=== PATIENT | male | born 1950 | race Caucasian/White ===

== ENCOUNTER 2020-05-24 12:16 | Inpatient (IN) | payer MEDICARE, OTHER ==
[2020-05-24] VITALS (10 sets, daily range): BP systolic 100–150; BP diastolic 55–97
[~2020-05-24] VITALS: Ht 182.9 cm; Wt 91.6 kg
--- NOTE | 2020-05-24 12:17 | NUR ---
[id number], unresponsive on bipap waiter/waitress captain. narcan 4mg and 0.5 epi given waiter/waitress captain. DR. THAKKAR FOR EVAL & RESP THERAPIST @ BS FOR INTUBATION.
[2020-05-24] MEDS ORDERED: PROPOFOL 100 ML IV ONE (12:25)
[2020-05-24] MEDS ORDERED: DEXAMETHASONE SOD PHOSPHATE 10 MG/ML VIAL ONE (12:30)
[2020-05-24] MEDS ORDERED: PROPOFOL 200 MG/20 ML VIAL IV ONE ×2 (12:30→13:30)
[2020-05-24] MEDS ORDERED: DEXAMETHASONE SOD PHOSPHATE 10 MG/ML VIAL IV ONE (12:30)
--- NOTE | 2020-05-24 12:36 | NUR ---
MOVE SHEET SUBMITTED
[2020-05-24 12:50] LABS: BASOPHILS # (AUTO) 0.1 /CMM (0.0-0.2); BASOPHILS % (AUTO) 0.5 % (0.0-2.0); EOSINOPHILS % (AUTO) 3.5 % (0.0-6.0); HEMATOCRIT 51 % (39-51); HEMOGLOBIN 16.6 g/dL (13.5-17.5); LYMPHOCYTES # (AUTO) 3.9 /CMM (0.8-4.8); LYMPHOCYTES % (AUTO) 35.7 % (20.0-44.0); MEAN CORPUSCULAR HGB CONC 33 g/dl (31.0-36.0); MEAN CORPUSCULAR VOLUME 97 fL (80-96); MONOCYTES # (AUTO) 1.3 /CMM (0.1-1.30); MONOCYTES % (AUTO) 12.3 % (2.0-12.0); NEUTROPHILS # (AUTO) 5.2 /CMM (1.8-8.9); PLATELET COUNT (AUTO) 285 /CMM (150-450); RED BLOOD CELL COUNT(AUTO) 5.22 MIL/uL (4.5-6.0); WHITE BLOOD COUNT (AUTO) 10.8 K/uL (4.3-11.0)
[2020-05-24 13:05] LABS: CALCIUM, SERUM 7.8 mg/dL (8.5-10.1); CARBON DIOXIDE 21 mmol/L (21-32); CHLORIDE 101 mmol/L (98-107); CREATININE 1.8 mg/dL (0.6-1.3); GLUCOSE 205 mg/dL (74-106); POTASSIUM 4.4 mmol/L (3.5-5.1); SODIUM SERUM 138 mmol/L (136-145); UREA NITROGEN, BLOOD 22 mg/dL (7-18)
[2020-05-24 13:10] LABS: ALANINE AMINOTRANSFERASE 82 U/L (12-78); ALBUMIN 3.4 g/dL (3.4-5.0); ALCOHOL, BLOOD < 3 mg/dL (0-0); ALKALINE PHOSPHATASE 84 U/L (46-116); ASPARTATE AMINOTRANSFERASE 81 U/L (15-37); BILIRUBIN,DIRECT 0.1 mg/dL (0.0-0.2); BILIRUBIN,TOTAL 0.5 mg/dL (0.2-1.0); TOTAL PROTEIN, SERUM 6.3 g/dL (6.4-8.2)
[2020-05-24 13:11] LABS: ACETAMINOPHEN 0 ug/ml (10-30); SALICYLATE 1.4 mg/dL (2.8-20.0)
--- NOTE | 2020-05-24 13:14 | NUR ---
PT BACK FROM CT. PT STABLE, NAD NOTED AT THIS TIME. IV PROPOFOL INFUSING WELL PER PROTOCOL. ON TELE, ST. WILL CONT TO MONITOR.
[2020-05-24 13:17] LABS: SERUM AMMONIA 81 umol/L (11-32)
[2020-05-24 13:30] LABS: THYROID STIMULATING HORMONE 4.326 uIU/mL (0.358-3.74)
[2020-05-24] MEDS ORDERED: PIPERACILLIN /TAZOBACTAM 3.375 G in IV D5W 50 ML IV ONE (13:30)
--- NOTE | 2020-05-24 13:50 | NUR ---
BED [id number]
[2020-05-24] MEDS ORDERED: ALBU18HF2 IH (13:51)
[2020-05-24] MEDS ORDERED: LEVO150T8 PO (13:51)
[2020-05-24] MEDS ORDERED: ALPR1TAB7 PO (13:51)
[2020-05-24] MEDS ORDERED: FLUT1BLS15 INH (13:51)
[2020-05-24] MEDS ORDERED: FLUT1DIS3 IH (13:52)
--- NOTE | 2020-05-24 13:52 | NUR ---
PANEL ON-CALL PAGED
[2020-05-24] MEDS ORDERED: CHOL100040 PO (13:53)
[2020-05-24 14:00] LABS: APPEARANCE,URINE Clear (CLEAR); BILIRUBIN,URINE Negative (NEGATIVE); BLOOD, URINE Large Ery/uL (NEGATIVE); COLOR,URINE Yellow (YELLOW); KETONES,URINE Negative (NEGATIVE); LEUKOCYTE ESTERASE ,URINE Negative (NEGATIVE); NITRITE, URINE Negative (NEGATIVE); PROTEIN,URINE >=300 mg/dl (NEGATIVE); UGLUCOSE Negative (NEGATIVE); UROBILINOGEN,URINE 0.2 EU/dL (0.2)
[2020-05-24] MEDS ORDERED: IV NS 0.9% 1,000 ML BAG IV ONE (14:00)
[2020-05-24 14:01] LABS: ABG BASE EXCESS -4.3 mmol/L; ABG OXYGEN SATURATION 99.3 % (92.0-98.5); ABG PCO2 46.4 mmHg (35.0-45.0); AaDO2 193.6 mmHg; COHb 0.3 % (0.5-1.5); MetHb 0.6 % (0.0-1.5); O2Hb 98.4 % (94.0-97.0); SITE, ABG Right Radial; VENT MODE, BG AC 20 550 +5 100%
[2020-05-24 14:02] LABS: BACTERIA,URINE Few /HPF (None Seen); RBC,URINE 21-50 /HPF (0-2); SQUAMOUS EPITHELIAL CELL,UR Rare /HPF (None Seen)
[2020-05-24] MEDS ORDERED: PIPERACILLIN /TAZOBACTAM 3.375 G VIAL IV ONE (14:08)
--- NOTE | 2020-05-24 14:21 | NUR ---
REPORT GIVEN TO KATHIA SILVA FOR JAY.
[2020-05-24] MEDS ORDERED: PROPOFOL 100 ML ONE (14:38)
[2020-05-24] MEDS ORDERED: PROPOFOL 100 ML IV PRN (15:00)
[2020-05-24] MEDS ORDERED: Z GUARD REMEDY 2 OZ OINT TP PRN (15:00)
[2020-05-24] MEDS ORDERED: ONDANSETRON HCL/PF 4 MG/2 ML VIAL IVP PRN (15:00)
[2020-05-24] MEDS ORDERED: ACETAMINOPHEN 650 MG/SUPP.RECT RC PRN (15:00)
[2020-05-24] MEDS ORDERED: ALBUTEROL FS 2.5 MG/3 ML VIAL.NEB NEB SCH (15:30)
--- NOTE | 2020-05-24 15:52 | NUR ---
PATIENT SELF-EXTUBATED HIMSELF. NC 6L/MIN SATING AT 98%. WILL CONTINUE TO MONITOR PATIENT.
[2020-05-24] MEDS ORDERED: IPRATROPIUM NEB FS 0.5 MG/2.5 ML AMPUL.NEB ONE (16:17)
[2020-05-24] MEDS ORDERED: ALBUTEROL HALF STRENGTH 1.25 MG/3 ML VIAL.NEB ONE (16:17)
[2020-05-24] MEDS: ALBUTEROL HALF STRENGTH 1.25 MG/3 ML VIAL.NEB NEB SCH ×3 (16:22→23:03)
[2020-05-24] MEDS: IPRATROPIUM NEB FS 0.5 MG/2.5 ML AMPUL.NEB NEB SCH ×3 (16:22→23:03)
[2020-05-24] MEDS ORDERED: ALBUTEROL HALF STRENGTH 1.25 MG/3 ML VIAL.NEB NEB PRN (16:30)
[2020-05-24] MEDS ORDERED: methylPREDNISolone SOD SUCC 125 MG/2ML VIAL IV ONE (16:30)
[2020-05-24 16:35] LABS: CREATININE, URINE 120.2 MG/DL (30.0-125.0); URINE TOTAL PROTEIN 400.9 mg/dL (0-11.9)
[2020-05-24] MEDS: CHOLECALCIFEROL 1,000 UNIT TABLET (VIT D3) PO SCH (16:49)
[2020-05-24 17:19] LABS: ABG BASE EXCESS -2.1 mmol/L; ABG OXYGEN SATURATION 97.8 % (92.0-98.5); ABG PCO2 49.2 mmHg (35.0-45.0); ABG PH 7.319 (7.350-7.450); ABG PO2 102.5 mmHg (75.0-100.0); AaDO2 155.1 mmHg; COHb 0.6 % (0.5-1.5); MetHb 0.5 % (0.0-1.5); O2Hb 96.7 % (94.0-97.0); SITE, ABG Right Radial; VENT MODE, BG N/C 6LPM
[2020-05-24] MEDS ORDERED: FEE PK DOSING 1 MIN EA MC ONE (18:43)
--- NOTE | 2020-05-24 18:54 | NUR ---
RN OPENING NOTE: RECEIVED PATIENT FROM ER TODAY AT 14:55. AT THAT TIME, PATIENT WAS INTUBATED BUT ALERT AND ATTEMPTING TO REMOVE TUBING. PATIENT WAS PLACED IN BED AND RESTRAINED TO PREVENT EXTUBATION. PATIENT CAME IN WITH #18 RAC/ LWRIST, C/D/I, FLUSHING WELL, NO SIGNS OF COMPLICATIONS NOTED. DIPRIVAN WAS RUNNING AT 50MCG/KG/MIN, HAD CONTACTED DR CRISTOBAL TO INCREASE DIPRIVAN. PATIENT HAD A BLOOD THAT WAS LATER REMOVED, URINATING IN URINAL. NOW, THE PATIENT IS AAOX3, RESPONDS APPROPRIATELY. SR IN THE 90S ON THE MONITOR. L BUTTOCK REDNESS, PHOTO TAKEN AND PLACED IN CHART. PATIENT IS COVID NEGATIVE. AROUND 14:45, PATIENT HAD EXTUBATED HIMSELF, DIPRIVAN TITRATED DOWN, NO DISTRESS WAS NOTED POST EXTUBATION. AT THIS TIME, PATIENT IS IN BED, ON NC 2L/MIN, SATING WELL, NO SIGNS OF ACUTE DISTRESS NOTED. MD PLACED ADMITTING ORDERS, FLUIDS STARTED, DIET PLACED, PATIENT FC, NKA. SAFETY MEASURES IMPLEMENTED, BED IN LOWEST POSITION, LOCKED, SIDE RAILS UP, CALL LIGHT WITHIN REACH. WILL ENDORSE TO KATHIA NAVA FOR CONTINUITY OF CARE. Addendum: 05/24/20 at 1911 by NELLIE CAT RN CORRECTION: PATIENT EXTUBATED HIMSELF AT 15:45
[2020-05-24] MEDS: IV D5/0.45 NACL 1,000 ML IV PRN (19:00)
--- NOTE | 2020-05-24 20:45 | NUR ---
ICU/DIRECTOR OF SPECIAL SERVICES PT REQUESTED SOMETHING TO SLEEP, LIKE LUNESTA. ALSO SAID HE WANTED A RESCUE INHALER TO HAVE AT BEDSIDE. IT WAS EXPLAINED THAT PT IS GETTING BREATHING TREATMENT Q 4 HOURS. HOWEVER PT IS REQUESTING TO HAVE SOMETHING AT BEDSIDE FOR HIM TO ADMINISTER HIMSELF. WATER VALVE REPAIRER WAS CALLED FOR PT'S REQUEST.
[2020-05-24] MEDS: VANCOMYCIN 1 GM in IV D5W 250 ML IV SCH (20:49)
[2020-05-24] MEDS: methylPREDNISolone SOD SUCC 125 MG/2ML VIAL IV SCH (20:50)
[2020-05-24] MEDS: HEPARIN SODIUM, PORCINE 5000 UNITS/1 ML VIAL SQ SCH (20:50)
--- NOTE | 2020-05-24 21:10 | NUR ---
ICU/CHIEF CONTROLLER TOWER HAND [employer] FOOD MAKER EMILY CALLED BACK SAID NO TO THE LUNESTA, BUT OK TO GIVE ATIVAN 1MG PO Q6HRS PRN FOR AGITATION AND SLEEP. THESE ORDERS WERE NOTED AND TAKEN OFF.
[2020-05-24] MEDS: PIPERACILLIN /TAZOBACTAM 3.375 G in IV D5W 100 ML IV SCH (21:37)
--- NOTE | 2020-05-24 23:30 | NUR ---
ICU/CASINO CAGE SUPERVISOR PT REQUESTED THE ATIVAN 1MG FOR SLEEP. THIS WAS GIVEN TO PT PER REQUEST. CALL LIGHT WITHIN REACH.
[2020-05-24] MEDS: LORAZEPAM 1 MG TABLET PO PRN (23:45)
[2020-05-25] VITALS (18 sets, daily range): BP systolic 99–159; BP diastolic 58–94
--- NOTE | 2020-05-25 00:10 | NUR ---
ICU/ROUTE DELIVERER PT REQUESTED TO HAVE ROOM, WARMER DESPITE THAT PT HAD EARLIER WANTED COLDER THEN 2 HOURS MADE WARMER. PT WAS GIVEN WARM BLANKETS THEN CALLED ENGINEERING TO INCREASE ROOM TEMPERATURE.
--- NOTE | 2020-05-25 00:45 | NUR ---
ICU/INVENTORY MANAGEMENT SPECIALIST ENGINEERING WAS CALLED TO INCREASE ROOM TEMPERATURE, HOWEVER DIDN'T CALL BACK. PT WAS VERY UPSET, SAID THAT HE WAS LEAVE AMA. PT'S ROOM WAS CHANGED FROM 254 TO 251.
[2020-05-25] MEDS: IPRATROPIUM NEB FS 0.5 MG/2.5 ML AMPUL.NEB NEB SCH ×6 (01:30→20:01)
[2020-05-25] MEDS: ALBUTEROL HALF STRENGTH 1.25 MG/3 ML VIAL.NEB NEB SCH ×6 (01:30→20:00)
--- NOTE | 2020-05-25 02:30 | NUR ---
ICU/CONTENT ENGINEER PT APPEARS TO BE HAPPY WITH THE ROOM CHANGE. PT'S NOT LEAVING AMA.
[2020-05-25] MEDS: PIPERACILLIN /TAZOBACTAM 3.375 G in IV D5W 100 ML IV SCH ×3 (04:52→20:24)
[2020-05-25] MEDS: methylPREDNISolone SOD SUCC 125 MG/2ML VIAL IV SCH ×3 (04:52→20:35)
[2020-05-25] MEDS: LORAZEPAM 1 MG TABLET PO PRN (05:33)
[2020-05-25 05:47] LABS: BASOPHILS % (AUTO) 0.1 % (0.0-2.0); HEMATOCRIT 50 % (39-51); HEMOGLOBIN 16.3 g/dL (13.5-17.5); LYMPHOCYTES # (AUTO) 0.9 /CMM (0.8-4.8); LYMPHOCYTES % (AUTO) 6.6 % (20.0-44.0); MEAN CORPUSCULAR HGB CONC 33 g/dl (31.0-36.0); MEAN CORPUSCULAR VOLUME 95 fL (80-96); MONOCYTES # (AUTO) 0.2 /CMM (0.1-1.30); MONOCYTES % (AUTO) 1.7 % (2.0-12.0); NEUTROPHILS % (AUTO) 91.6 % (43.0-81.0); PLATELET COUNT (AUTO) 248 /CMM (150-450); RED BLOOD CELL COUNT(AUTO) 5.27 MIL/uL (4.5-6.0); WHITE BLOOD COUNT (AUTO) 14.2 K/uL (4.3-11.0)
--- NOTE | 2020-05-25 06:00 | NUR ---
ICU/MICROFILM PROCESSOR PT HAS BEEN REQUESTING ATIVAN 1MG, FOR THE PAST FEW HOURS. PT REQUIRED TO BE REMINDED THAT IT'S EVERY 6 HOURS. 0600-ATIVAN WAS GIVEN AT THIS TIME.
[2020-05-25 06:11] LABS: ALBUMIN 3.3 g/dL (3.4-5.0); BILIRUBIN,TOTAL 0.5 mg/dL (0.2-1.0); CALCIUM, SERUM 8.1 mg/dL (8.5-10.1); CREATININE 1.5 mg/dL (0.6-1.3); MAGNESIUM 2.3 mg/dL (1.8-2.4); POTASSIUM 5.4 mmol/L (3.5-5.1); TOTAL PROTEIN, SERUM 6.6 g/dL (6.4-8.2)
--- NOTE | 2020-05-25 06:50 | NUR ---
ICU/PETROLEUM REFINING FIRER LACTIC ACID WAS 3.5 NOTIFIED THE STAMPING MILL TENDER MD, HOWEVER HE SAID TO PASS IT ALONG TO THE PRIMARY CARE PROVIDER.
[2020-05-25] MEDS: LEVOTHYROXINE SODIUM 75 MCG TABLET PO SCH (07:55)
[2020-05-25] MEDS: FLUTICASONE/VILANTEROL 1 EACH BLST.W.DEV IH SCH (08:34)
[2020-05-25] MEDS: PANTOPRAZOLE 40 MG VIAL IV SCH (08:34)
[2020-05-25] MEDS: CHOLECALCIFEROL 1,000 UNIT TABLET (VIT D3) PO SCH (08:34)
[2020-05-25] MEDS: HEPARIN SODIUM, PORCINE 5000 UNITS/1 ML VIAL SQ SCH ×2 (08:35→20:27)
--- NOTE | 2020-05-25 08:45 | NUR ---
OPENING ELEPHANT TAMER NOTE RECEIVED PT SITING UPRIGHT IN BED WITH NO SIGNS OR SYMPTORMS OF RESPIRATORY DISTRESS. HE IS ON ROOM AIR WITH ON 02 SATURATION OF 93% AND STATES HE "DOES NOT NEED OXYGEN AT THIS TIME." WILL CONTINUE TO MONITOR. HE IS AWAKE, ALERT AND ORIENTED AND WALKS TO THE BATHROOM INDEPENDENTLY. HE HAS AN 18G RAC THAT IS PATENT AND FLUSHED WITH NO S/S OF INFILTRATION OR INFECTION. INSTRUCTED PT ON HOW TO USE CALL MELO AND HE COMMUNICATED PLAN OF CARE WITH PT. BED IS IN LOWEST AND LOCKED POSITION. WILL CONTINUE TO MONITOR. Addendum: 05/26/20 at 0350 by WANDA RICHARDSON RN OPENING NOTE FOR 05/25/2020 AT 1945.
[2020-05-25] MEDS ORDERED: FUROSEMIDE 20 MG/2 ML VIAL IV ONE (09:00)
[2020-05-25] MEDS ORDERED: SODIUM POLYSTYRENE SULFONATE 15 G/60 ML BOTTLE PO ONE (09:00)
--- NOTE | 2020-05-25 12:41 | NUR ---
RN NOTE 0715: Received patient awake, A/Ox4. Tolerated room air. No c.o pain. Afebrile. SR on the monitor. PIV intact, IVF infusing as ordered. 0830: Wanting to go home but told him to wait for MD's round, verbalized understanding. Abdomen distended but for patient it's not new and had BM the other day prior to admission. Given Kayexalate for K 5.4. 0910: S/E by Dr. Cerrato, with order of CXR today. 1100: S/E by Dr. Franco, informed patient still not cleared to DC home, awaiting cultures result, will continue Solumedrol and ATB. Patient verbalized understanding. 1040: No any significant changes noted at this time. Kept clean, warm and dry. Needs attended. Kept call light at reach. Able to use urinals, given Lasix 40mg IV in am.
[2020-05-25] MEDS: VANCOMYCIN 1 GM in IV D5W 250 ML IV SCH (15:15)
[2020-05-25 15:27] LABS: CREATININE 1.6 mg/dL (0.6-1.3); POTASSIUM 3.9 mmol/L (3.5-5.1)
--- NOTE | 2020-05-25 16:00 | NUR ---
GROUP SEGMENT CONSULTANT NOTE PATIENT COME FROM ICU ALERT , ORIENTED ON TELE MONITOR SR 91 NO SOB NOTED UNIT ORIENTATION DONE , ALL NEEDS ATTENDED ,VS TAKEN WILL CONT TO MONITOR
--- NOTE | 2020-05-25 16:07 | NUR ---
RN NOTE Report given to Iman BAE for JAY> No any significant changes. Kept clean, warm and dry. Needs attended. Still tolerating room air. Patient requested to continue his Androgel 80mg daily and Xanax 1mg 3x a day, made Dr. Franco aware, ordered to continue.
[2020-05-25] MEDS: ALPRAZOLAM 1 MG TABLET PO SCH (17:43)
[2020-05-25] MEDS ORDERED: SIMVASTATIN 20 MG TABLET PO SCH (22:00)
[2020-05-26] VITALS: BP 122/79
[2020-05-26] MEDS: IPRATROPIUM NEB FS 0.5 MG/2.5 ML AMPUL.NEB NEB SCH ×2 (01:15→08:03)
[2020-05-26] MEDS: ALBUTEROL HALF STRENGTH 1.25 MG/3 ML VIAL.NEB NEB SCH ×2 (01:15→08:03)
[2020-05-26] MEDS: ALPRAZOLAM 1 MG TABLET PO SCH ×2 (02:08→08:35)
[2020-05-26] MEDS: IV D5/0.45 NACL 1,000 ML IV PRN (02:17)
--- NOTE | 2020-05-26 02:30 | NUR ---
HEALTH SCIENCES PROGRAM COORDINATOR NOTE PT WANTED TO HAVE THE BI-PAP MASK REMOVED. REMOVED MASK AND PLACED ON NASAL CANNULA 2LMP WITH AN OXYGEN SATURATION OF 94%. NOTIFIED RESPIRATORY THERAPY. WILL CONTINUE TO MONITOR. Addendum: 05/26/20 at 0329 by WANDA RICHARDSON RN PLEASE DISREGARD. WRONG PT.
--- NOTE | 2020-05-26 04:00 | NUR ---
MATCHER OPERATOR NOTES PT REFUSED 0400 VITAL SIGN CHECK. TELE MONITOR READS NSR WITH A HEART RATE OF 72. WILL ATTEMPT TO GET VITAL SIGNS AT ANOTHER TIME.
[2020-05-26] MEDS: PIPERACILLIN /TAZOBACTAM 3.375 G in IV D5W 100 ML IV SCH (04:20)
[2020-05-26] MEDS: methylPREDNISolone SOD SUCC 125 MG/2ML VIAL IV SCH (04:21)
--- NOTE | 2020-05-26 06:24 | NUR ---
SIGNALS INTELLIGENCE ANALYSIS MANAGER NOTES LAB NOTIFIED OF CRITICAL LAB VALUE FOR CK-MB OF 12.4. DR DIAZ MADE AWARE.
[2020-05-26 07:35] LABS: HEMATOCRIT 49 % (39-51); HEMOGLOBIN 15.9 g/dL (13.5-17.5); LYMPHOCYTES # (AUTO) 0.9 /CMM (0.8-4.8); LYMPHOCYTES % (AUTO) 4.5 % (20.0-44.0); MEAN CORPUSCULAR HGB CONC 33 g/dl (31.0-36.0); MEAN CORPUSCULAR VOLUME 95 fL (80-96); MONOCYTES # (AUTO) 0.9 /CMM (0.1-1.30); MONOCYTES % (AUTO) 4.4 % (2.0-12.0); NEUTROPHILS # (AUTO) 19.3 /CMM (1.8-8.9); NEUTROPHILS % (AUTO) 91.1 % (43.0-81.0); PLATELET COUNT (AUTO) 256 /CMM (150-450); RED BLOOD CELL COUNT(AUTO) 5.14 MIL/uL (4.5-6.0); WHITE BLOOD COUNT (AUTO) 21.2 K/uL (4.3-11.0)
[2020-05-26 07:37] LABS: ALBUMIN 3.2 g/dL (3.4-5.0); BILIRUBIN,TOTAL 0.5 mg/dL (0.2-1.0); CALCIUM, SERUM 8.1 mg/dL (8.5-10.1); CREATININE 1.4 mg/dL (0.6-1.3); MAGNESIUM 2.3 mg/dL (1.8-2.4); PHOSPHORUS 3.7 mg/dL (2.5-4.9); POTASSIUM 4.1 mmol/L (3.5-5.1); TOTAL PROTEIN, SERUM 6.6 g/dL (6.4-8.2)
[2020-05-26 08:00] VITALS: BP 129/90
--- NOTE | 2020-05-26 08:00 | NUR ---
REBECCA CHEMICALS DISTILLER NOTES RECEIVED PT IS AWAKE. ALERT AND ORIENTED X4.PT IS ON RA SAT 97%. PT HAS RFA #20 IS RUNNING WELL ,INTACT AND NO SIGN OF INFILTRATION. NO SIGN OF RESPIRATORY DISTRESS. PT VS WNL. SAFETY MEASUREMENTS ARE IMPLEMENTED. BED IS IN THE LOWEST POSITION AND RAILS ARE UP X2. WILL CNTUNIE TO MONITOR
[2020-05-26 08:07] LABS: COMPLEMENT C3, SERUM 146 mg/dL (82-167); COMPLEMENT C4, SERUM 27 mg/dL (14-44); PTH, INTACT 38 pg/mL (15-65)
[2020-05-26] MEDS: LEVOTHYROXINE SODIUM 75 MCG TABLET PO SCH (08:35)
[2020-05-26] MEDS: CHOLECALCIFEROL 1,000 UNIT TABLET (VIT D3) PO SCH (08:35)
[2020-05-26] MEDS: PANTOPRAZOLE 40 MG VIAL IV SCH (08:39)
[2020-05-26] MEDS: HEPARIN SODIUM, PORCINE 5000 UNITS/1 ML VIAL SQ SCH (08:42)
[2020-05-26] MEDS: VANCOMYCIN 1 GM in IV D5W 250 ML IV SCH (08:54)
[2020-05-26] MEDS ORDERED: ANDROGEL TP SCH (09:00)
[2020-05-26] MEDS: FLUTICASONE/VILANTEROL 1 EACH BLST.W.DEV IH SCH (09:14)
--- NOTE | 2020-05-26 11:15 | NUR ---
REBECCA RN NOTES PT IS OK TO DC GOT ORDERS.
[2020-05-26] MEDS ORDERED: SIMV-46 PO (11:27)
[2020-05-26] MEDS ORDERED: PANT20TA2 PO (11:27)
[2020-05-26] MEDS ORDERED: METH4TAB3 PO (11:27)
[2020-05-26] MEDS ORDERED: ALBUTEROL SULFATE INH 18 GM HFA.AER.AD IH PRN (11:30)
[2020-05-26] MEDS ORDERED: ALPRAZOLAM 1 MG TABLET PO PRN (11:30)
--- NOTE | 2020-05-26 11:50 | NUR ---
REBECCA RN NOTES' PT IS READY TO DC TO HOME. HOME MEDS PRESCRIPTION WERE GIVEN .DC INSTRUCTIONS WERE GIVEN. PT VS WNL. SAFETY MEASUREMENTS ARE IMPLEMENTED. PT WAS DC IN SAFELY MATTER WITH HIS WAITING IN THE LOBBY.
[2020-05-26 14:27] LABS: *SPE A/G RATIO 1.2 (0.7-1.7); *SPE ALBUMIN 3.3 g/dL (2.9-4.4); *SPE ALPHA-1-GLOBULIN 0.2 g/dL (0.0-0.4); *SPE ALPHA-2-GLOBULIN 0.8 g/dL (0.4-1.0); *SPE BETA GLOBULIN 1.1 g/dL (0.7-1.3); *SPE GLOBULIN, TOTAL 2.7 g/dL (2.2-3.9); *SPE M-SPIKE Not Observed g/dL (Not Observed); *SPEGAMMA GLOBULIN 0.6 g/dL (0.4-1.8)
[2020-05-26 16:24] LABS: *ANA ANTI-CENTROMERE B AB <0.2 AI (0.0-0.9); *ANA ANTI-DNA(DS) AB, QN <1 IU/mL (0-9); *ANA ANTI-JO-1 <0.2 AI (0.0-0.9); *ANA ANTICHROMATIN ANTIBODY <0.2 AI (0.0-0.9); *ANA RNP ANTIBODIES <0.2 AI (0.0-0.9); *ANA SJOGREN'S ANTI-SS-A <0.2 AI (0.0-0.9); *ANA SJOGREN'S ANTI-SS-B <0.2 AI (0.0-0.9); *ANAANTI-SCLERODERMA-70 AB <0.2 AI (0.0-0.9); *ANASMITH AB <0.2 AI (0.0-0.9)
[2020-05-26] MEDS ORDERED: FLUTICASONE/SALMETEROL 1 DISK IH SCH (17:00)
[2020-05-26] MEDS ORDERED: VANCOMYCIN 1 GM in IV D5W 250 ML IV SCH (20:00)
== END 2020-05-26 11:42 | disposition home or self-care (01) | DRG 917 ==
LOC: ER 12:18 → ICU 14:36 → TELE1 05-25 15:50
PROVIDERS: ADMIT Nurse Practitioner Acute Care; ATTEND Student in an Organized Health Care Education/Training Program
PROC: 5A1935Z Respiratory Ventilation, Less than 24 Consecutive Hours (ICD-10-PCS; principal; 2020-05-24)
PROC: 0BH17EZ Insertion of Endotracheal Airway into Trachea, Via Natural or Artificial Opening (ICD-10-PCS; 2020-05-24)
DX: T42.4X1A Poisoning by benzodiazepines, accidental (unintentional), initial encounter (principal); J69.0 Pneumonitis due to inhalation of food and vomit; R09.2 Respiratory arrest; N17.0 Acute kidney failure with tubular necrosis; K72.00 Acute and subacute hepatic failure without coma; G93.1 Anoxic brain damage, not elsewhere classified; E87.2 Acidosis; N39.0 Urinary tract infection, site not specified; J98.11 Atelectasis; E44.1 Mild protein-calorie malnutrition; T40.7X1A Poisoning by cannabis (derivatives), accidental (unintentional), initial encounter; Y92.89 Other specified places as the place of occurrence of the external cause; E86.0 Dehydration; E03.9 Hypothyroidism, unspecified; F41.9 Anxiety disorder, unspecified; E78.5 Hyperlipidemia, unspecified; N18.9 Chronic kidney disease, unspecified; E87.5 Hyperkalemia; K59.00 Constipation, unspecified
CPT/HCPCS: 36415; 36600; 70450-TC; 71045-TC; 80048-TC; 80053-TC; 80061-TC; 80076-TC; 80202-TC; 80305; 81000-TC; 82140-TC; 82550-TC; 82553; 82570-TC; 82803-TC; 82962-TC; 83605-TC; 83735-TC; 83880; 83970; 84100-TC; 84155; 84155-TC; 84165; 84300-TC; 84436-TC; 84443-TC; 84484-TC; 85025-TC; 85652-TC; 85730-TC; 86225; 86235; 86706; 86803; 87040-TC; 87081-TC; 87086-TC; 87340; 93307-TC; 94002-TC; 94799-TC; 99082-TC; C9113; G0378; G0480; J1100; J1644; J1940; J2543; J2930; J3370; J3490; J7030; J7060